=== PATIENT | male | born 2000 | race Caucasian/White ===

== ENCOUNTER 2021-03-17 21:57 | Emergency (ER) | payer OTHER ==
[2021-03-17 22:15] VITALS: BP 119/76; PULSE 81
[2021-03-17] MEDS ORDERED: traMADol 50 MG Tab PO ONE (23:07)
[2021-03-17] MEDS ORDERED: Clindamycin HCl 150 MG Cap PO ONE (23:07)
[2021-03-17] MEDS ORDERED: Ibuprofen 600 MG Tab PO ONE (23:07)
--- NOTE | 2021-03-17 23:15 | EDM.PDOC ---
ED HPI GENERAL MEDICAL PROBLEM - General Chief Complaint: ENT Problem Stated Complaint: POSSIBLE INFECTED TOOTH Time Seen by Provider: 03/17/21 22:58 - History of Present Illness INITIAL COMMENTS - FREE TEXT/NARRATIVE: HISTORY AND PHYSICAL: History of present illness: This 21-year-old who presents ER today secondary to pain and discomfort to his right lower premolar and molar teeth secondary to fracture and cavitation. Patient reports that he had pain for over a month and saw his dentist. Patient has been taking Keflex for 3 days without any significant improvement. Patient reports that he got switched over to amoxicillin 3 days ago. Patient reports that he has an appointment on April 07 for the dentist/oral surgeon to fix his teeth. Patient reports that one tooth needs root canal the other 1 needs an oral surgeon for extraction. Patient reports no trismus. Patient has any recent fevers, shakes, chills, nausea, vomiting, diarrhea, dysuria, frequency, urgency, difficulty breathing. Review of systems: As per history of present illness and below otherwise all systems reviewed and negative. Past medical history: As per history of present illness and as reviewed below otherwise noncontributory. Surgical history: As per history of present illness and as reviewed below otherwise noncontributory. Social history: No reported history of drug abuse. Family history: As per history of present illness and as reviewed below otherwise noncontributory. Physical exam: This patient was seen and evaluated during the 2019 SARS-CoV-2 novel coronavirus pandemic period. Community viral transmission is ongoing at time of this encounter and the emergency department is operating under pandemic response procedures. Constitutional: Patient is oriented to person, place, and time. Appears well- developed and well-nourished. No distress. HEENT: Moist mucous membranes Head: Normocephalic and atraumatic Eyes: Right eye exhibits no discharge. Left eye exhibits no discharge. No scleral icterus Neck: Normal range of motion. No tracheal deviation present. Cardiovascular: Normal rate and regular rhythm. Pulmonary: Effort normal, no respiratory distress. Abdominal: No distention Musculoskeletal: Normal range of motion Neurologic: Alert and oriented to person, place and time. Skin: [place], warm and dry. Psychiatric: Normal mood and affect. Behavior is normal. Judgment and thought content normal. Nursing note and vital signs have been reviewed Patient has no evidence of Keshav's angina, no trismus, no airway compromise. Patient has no stridor. Patient does have poor dentition throughout but greatest in his right molar and premolar region with soft tissue swelling in his right submandibular area consistent with either a small submandibular lymphadenopathy. Assessment and plan: 21-year-old with dental infection and dental pain who presents ER today for assistance with pain. Patient has been on amoxicillin for 3 days after a 3-day course of Keflex. Patient will be switched over to clindamycin at the thing this might be a better antibiotic for dental abscess/infection. Patient has an appointment on April 07 for root canal and eventually extraction of his teeth. I have discussed with the patient that I have no issue with assisting with his pain but that is an ER doctor would not be able to manage it for the next 3 weeks and that he will need to follow-up with either a different dentist or primary care physician to help manage his pain. I will add clindamycin, ibuprofen, Ultram. Patient reports he has only been taking the Tylenol at home for pain. Patient reports no airway compromise. Patient has no signs or symptoms of be concerning for airway compromise or Keshav's angina. Reassessment at the time of disposition demonstrates that the patient is in no acute distress. The patient has remained stable throughout the entire ED visit and is without objective evidence for acute process requiring urgent intervention or hospitalization. The patient is stable for discharge, counseling is provided as documented above, discussed symptomatic treatment and specific conditions for return. I have spoken with the patient/caregiver and discussed todays findings, in addition to providing specific details for the plan of care. Questions are answered and there is agreement with the plan. Definitive disposition and diagnosis as appropriate pending reevaluation and review of above. Treatments CARTRIDGE GAUGER: Reports: Acetaminophen, NSAIDS R mouth Pain Score (Numeric/FACES): 6 - Related Data Allergies Allergy/AdvReac Type Severity Reaction Status Date / Time No Known Allergies Allergy Verified 12/21/14 21:01 Home Meds: Home Meds Amoxicillin 500 mg PO TID 03/17/21 [History] Clindamycin HCl 300 mg PO Q6HR #40 capsule 03/17/21 [Rx] Ibuprofen 600 mg PO Q6HR PRN #30 tablet 03/17/21 [Rx] traMADol [Ultram] 50 mg PO Q6H PRN #12 tab 03/17/21 [Rx] traZODone HCl [Trazodone HCl] 50 mg PO DAILY PRN 03/17/21 [History] Past Medical History - Past Health History Medical/Surgical History: Denies Medical/Surgical History HEENT History: Reports: None Cardiovascular History: Reports: None Respiratory History: Reports: None Gastrointestinal History: Reports: None Genitourinary History: Reports: None Musculoskeletal History: Reports: None Neurological History: Reports: None Psychiatric History: Reports: None Endocrine/Metabolic History: Reports: None Hematologic History: Reports: None Immunologic History: Reports: None Oncologic (Cancer) History: Reports: None Dermatologic History: Reports: None - Infectious Disease History Infectious Disease History: Reports: Chicken Pox, Pertussis (Whooping Cough) - Past Surgical History Head Surgeries/Procedures: Reports: None Social & Family History - Family History Family Medical History: No Pertinent Family History - Tobacco Use Tobacco Use Status *Q: Current Every Day Tobacco User Years of Tobacco use: 7 Packs/Tins Daily: 1 - Caffeine Use Caffeine Use: Reports: Energy Drinks - Recreational Drug Use Recreational Drug Use: No ED ROS GENERAL - Review of Systems Review Of Systems: See Below ED EXAM, GENERAL - Physical Exam Exam: See Below Course - Vital Signs Last Recorded V/S: Last Vital Signs Temp 97.1 F 03/17/21 22:10 Pulse 81 03/17/21 22:10 Resp 18 03/17/21 22:10 BP 119/76 03/17/21 22:10 Pulse Ox 98 03/17/21 22:10 - Orders/Labs/Meds Orders: Active Orders 24 hr Category Date Time Status clindamycin HCL [Cleocin] Med 03/17/21 23:07 Once 300 mg PO ONETIME ONE Meds: Medications Discontinued Medications Generic Name Dose Route Start Last Admin Trade Name Florencioq PRN Reason Stop Dose Admin Ibuprofen 600 mg 03/17/21 23:07 Ibuprofen 600 Mg Tab PO 03/17/21 23:08 ONETIME ONE Tramadol HCl 50 mg 03/17/21 23:07 Tramadol 50 Mg Tab PO 03/17/21 23:08 ONETIME ONE Departure - Departure Time of Disposition: 23:11 Disposition: Home, Self-Care 01 Condition: Good Clinical Impression: Dental abscess, Dental caries - Discharge Information Instructions: Dental Caries, Adult, Dental Abscess, [id number] Referrals: PCP,None [Primary Care Provider] - Additional Instructions: You are seen and evaluated in ER today secondary to dental abscess/dental caries. Please keep your dental appointment that is scheduled on April 07 however please try to see if he can see the dentist before then. You will be given a prescription for clindamycin to take 4 times a day as an antibiotic. You will also be given a prescription for ibuprofen and tramadol to help with your pain. You can also add acetaminophen help you with pain as well. The following information is given to patients seen in the emergency department who are being discharged to home. This information is to outline your options for follow-up care. We provide all patients seen in our emergency department with a follow-up referral. The need for follow-up, as well as the timing and circumstances, are variable depending upon the specifics of your emergency department visit. If you don't have a primary care physician on staff, we will provide you with a referral. We always advise you to contact your personal physician following an emergency department visit to inform them of the circumstance of the visit and for follow-up with them and/or the need for any referrals to a consulting specialist. The emergency department will also refer you to a specialist when appropriate. This referral assures that you have the opportunity for follow-up care with a specialist. All of these measure are taken in an effort to provide you with optimal care, which includes your follow-up. Under all circumstances we always encourage you to contact your private physician who remains a resource for coordinating your care. When calling for follow-up care, please make the office aware that this follow-up is from your recent emergency room visit. If for any reason you are refused follow-up, please contact the [facility] Emergency Department at and asked to speak to the emergency department charge nurse. [facility] [address] [place] [id number] [address] Sepsis Event Note (ED) - Evaluation Sepsis Screening Result: No Definite Risk - Focused Exam Vital Signs: Vital Signs Temp Pulse Resp BP Pulse Ox 03/17/21 22:10 97.1 F 81 18 119/76 98 - My Orders Last 24 Hours: My Active Orders 03/17/21 23:07 clindamycin HCL [Cleocin] 300 mg PO ONETIME ONE - Assessment/Plan Last 24 Hours: My Active Orders 03/17/21 23:07 clindamycin HCL [Cleocin] 300 mg PO ONETIME ONE
== END 2021-03-17 23:29 | disposition home or self-care (01) ==
LOC: MW.ED 21:57
DX: K04.7 Periapical abscess without sinus (principal); K02.9 Dental caries, unspecified; Z72.0 Tobacco use
CPT/HCPCS: 99282; A9270

== ENCOUNTER 2023-03-26 12:50 | Emergency (ER) | payer SELFPAY ==
[2023-03-26] MEDS ORDERED: Lidocaine 2% Viscous Solution 15 ML UD PO ONE (13:09)
[2023-03-26] MEDS ORDERED: Benzocaine 20% Topical Spray UD MUCMEM ONE (13:09)
[2023-03-26 13:18] VITALS: BP 138/95; PULSE 86
== END 2023-03-26 13:28 | disposition home or self-care (01) ==
LOC: MW.ED 12:50
DX: K04.7 Periapical abscess without sinus (principal)
CPT/HCPCS: 99283; A9270

== ENCOUNTER 2025-04-26 15:41 | Emergency (ER) | payer BC ==
[2025-04-26 15:51] VITALS: BP 140/74; PULSE 89
[2025-04-26] MEDS: Amoxicillin/Clavulanate K 875-125 MG Tab PO ONE (16:39)
== END 2025-04-26 16:59 | disposition home or self-care (01) ==
LOC: MW.ED 15:41
DX: J06.9 Acute upper respiratory infection, unspecified (principal); H66.92 Otitis media, unspecified, left ear; Z75.3 Unavailability and inaccessibility of health-care facilities; Z79.899 Other long term (current) drug therapy
CPT/HCPCS: 71045; 87428; 99283; A9270; 99284